=== PATIENT | female | born 1960 | race Caucasian/White ===

== ENCOUNTER → 2017-02-18 | Outpatient (REF) | payer BC ==
[2017-02-18 15:51] LABS: ALBUMIN 3.7 GM/DL (3.2-5.2); ALBUMIN/GLOBULIN RATIO 1.28 (1.00-1.93); ALKALINE PHOSPHATASE 70 U/L (45-117); ALT/SGPT 29 U/L (12-78); ANION GAP 6 MEQ/L (8-16); AST/SGOT 14 U/L (15-37); BILIRUBIN,TOTAL 0.9 MG/DL (0.2-1.0); BLOOD UREA NITROGEN 8 MG/DL (7-18); CALCIUM LEVEL 8.5 MG/DL (8.5-10.1); CARBON DIOXIDE LEVEL 27 MEQ/L (21-32); CHLORIDE LEVEL 104 MEQ/L (98-107); CHOLESTEROL LEVEL 170 MG/DL (<200); GLOMERULAR FILTRATION RATE > 60.0 (>51); GLUCOSE, FASTING 92 MG/DL (70-105); POTASSIUM SERUM 3.9 MEQ/L (3.5-5.1); SODIUM LEVEL 137 MEQ/L (136-145); TOTAL PROTEIN 6.6 GM/DL (6.4-8.2); TRIGLYCERIDES LEVEL 238 MG/DL (<150)
== END ==
LOC: M SFHCLACO 09:05
PROVIDERS: ATTEND Physician Assistant
DX: I10 Essential (primary) hypertension (principal); E78.2 Mixed hyperlipidemia; Z68.36 Body mass index [BMI] 36.0-36.9, adult

== ENCOUNTER → 2017-05-29 | Outpatient (CLI) | payer BC ==
--- NOTE | 2017-05-29 16:05 | REP ---
MRI brain and posterior fossa without and with IV gadolinium: History: Pain in the right ear. History of bilateral ear pain. Headaches. No comparison brain imaging. Technique: Axial and sagittal imaging planes are utilized for T1 and T2-weighted scans. Sequences include spin-echo, fast spin echo, FLAIR, and diffusion weighted sequences. Gadolinium enhancement dose is 21 ml of intravenous ProHance. Post gadolinium enhanced axial and coronal T1-weighted images are acquired with thin sections through the posterior fossa. MRI findings: No bony calvarial lesion is seen. Craniocervical junction is unremarkable. No intraorbital abnormality is seen. Diffusion weighted scans show no evidence to suggest acute ischemia. Thin section T2-weighted scans show normal seventh and eighth nerves in symmetric internal auditory canals. Cochlear and vestibular apparatus appear intact. Postcontrast images show no abnormal intercanalicular or extra canalicular enhancement. No CP angle cistern mass lesion is seen. There is no evidence of hydrocephalous. No abnormal white matter lesion is seen. No infarct, intracranial mass or abnormal contrast enhancement is appreciated. Impression: Unremarkable MRI study of the brain and posterior fossa without and with IV contrast. Signed by Kj Louise MD 05/29/2017 06:02 P
== END ==
LOC: M RAD 12:46
PROVIDERS: ATTEND Physician Assistant
DX: H60.391 Other infective otitis externa, right ear (principal); H92.01 Otalgia, right ear
CPT/HCPCS: 70553; A9576

== ENCOUNTER → 2017-06-27 | Outpatient (REF) | payer BC | LOC: M SFHCPLAZ 16:06 | PROVIDERS: ATTEND Family Medicine | DX: M25.541 Pain in joints of right hand (principal) ==

== ENCOUNTER → 2019-01-09 | Outpatient (CLI) | payer BC ==
[2019-01-09 17:19] LABS: ALBUMIN 4.1 GM/DL (3.2-5.2); ALT/SGPT 30 U/L (12-78); BILIRUBIN,TOTAL 0.7 MG/DL (0.2-1.0); BLOOD UREA NITROGEN 11 MG/DL (7-18); CARBON DIOXIDE LEVEL 27 MEQ/L (21-32); CHLORIDE LEVEL 107 MEQ/L (98-107); CHOLESTEROL LEVEL 214 MG/DL (<200); CHOLESTEROL RISK RATIO 5.219 (<5); CREATININE FOR GFR 0.78 MG/DL (0.55-1.30); GLOMERULAR FILTRATION RATE > 60.0 (>51); GLUCOSE, FASTING 97 MG/DL (70-100); HDL CHOLESTEROL 41 MG/DL (>40); LDL CHOLESTEROL 112 MG/DL (<100); NON-HDL-C 173 MG/DL; POTASSIUM SERUM 4.2 MEQ/L (3.5-5.1); SODIUM LEVEL 140 MEQ/L (136-145); TOTAL PROTEIN 7.3 GM/DL (6.4-8.2); TRIGLYCERIDES LEVEL 307 MG/DL (<150)
[2019-01-09 17:49] LABS: CREATININE, URINE 93.7 MG/DL; MALB URINE SIEMENS 5.3 MG/L; MAU/CREAT RATIO 5.6 MCG/MG (0.0-30.0)
== END ==
LOC: M ADAMS 08:59
PROVIDERS: ATTEND Nurse Practitioner Family
DX: I10 Essential (primary) hypertension (principal); E78.2 Mixed hyperlipidemia

== ENCOUNTER → 2019-02-09 | Outpatient (REF) | payer BC | LOC: M SFHCPLAZ 10:06 → M SFHCADAM 10:12 | PROVIDERS: ATTEND Nurse Practitioner Family | DX: E78.2 Mixed hyperlipidemia (principal) ==

== ENCOUNTER → 2019-02-09 | Outpatient (CLI) | payer BC ==
--- NOTE | 2019-02-10 02:31 | REP ---
Clinical: Arthralgia. Technique: AP, lateral, bilateral oblique views of the right hand. 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 Mild osteoarthritic degenerative changes noted throughout the remainder of the interphalangeal joints as well as the first carpometacarpal and metacarpophalangeal joint. Increase sclerosis along the radial surface and distal carpal row with joint space narrowing at the radiocarpal and carpometacarpal joints also identified. No significant periarticular erosive changes or calcified loose bodies are identified. Impression: Arthritic changes as detailed above. Electronically Signed by Lenny Lindo MD 02/10/2019 02:23 A
== END ==
LOC: M ADAMS 10:08
PROVIDERS: ATTEND Nurse Practitioner Family
DX: M19.041 Primary osteoarthritis, right hand (principal)

== ENCOUNTER → 2019-07-26 | Outpatient (REF) | payer BC ==
[2019-07-26 12:51] LABS: ALBUMIN 4.1 GM/DL (3.2-5.2); ALT/SGPT 39 U/L (12-78); BILIRUBIN,TOTAL 0.8 MG/DL (0.2-1.0); BLOOD UREA NITROGEN 11 MG/DL (7-18); CALCIUM LEVEL 9.4 MG/DL (8.5-10.1); CARBON DIOXIDE LEVEL 30 MEQ/L (21-32); CHLORIDE LEVEL 104 MEQ/L (98-107); CHOLESTEROL LEVEL 226 MG/DL (<200); CHOLESTEROL RISK RATIO 4.808 (<5); CREATININE FOR GFR 0.74 MG/DL (0.55-1.30); FREE T4 0.76 NG/DL (0.76-1.46); GLOMERULAR FILTRATION RATE > 60.0 (>51); GLUCOSE, FASTING 104 MG/DL (70-100); HDL CHOLESTEROL 47 MG/DL (>40); LDL CHOLESTEROL 108 MG/DL (<100); NON-HDL-C 179 MG/DL; POTASSIUM SERUM 4.1 MEQ/L (3.5-5.1); SODIUM LEVEL 139 MEQ/L (136-145); TOTAL PROTEIN 7.6 GM/DL (6.4-8.2); TRIGLYCERIDES LEVEL 356 MG/DL (<150)
[2019-07-26 12:53] LABS: TOTAL 25(OH) VITAMIN D 24.3 NG/ML (30.0-100.0)
== END ==
LOC: M SFHCADAM 08:48
PROVIDERS: ATTEND Nurse Practitioner Family
DX: I10 Essential (primary) hypertension (principal); E66.9 Obesity, unspecified; E78.2 Mixed hyperlipidemia

== ENCOUNTER → 2021-01-17 | Outpatient (REF) | payer BC ==
[2021-01-17 13:37] LABS: ALBUMIN 3.9 GM/DL (3.2-5.2); ALT/SGPT 43 U/L (12-78); BLOOD UREA NITROGEN 9 MG/DL (7-18); CALCIUM LEVEL 9.6 MG/DL (8.8-10.2); CARBON DIOXIDE LEVEL 25 MEQ/L (21-32); CHLORIDE LEVEL 106 MEQ/L (98-107); CHOLESTEROL LEVEL 199 MG/DL (<200); CHOLESTEROL RISK RATIO 4.627 (<5); CREATININE FOR GFR 0.68 MG/DL (0.55-1.30); GLOMERULAR FILTRATION RATE > 60.0 (>45); GLUCOSE, FASTING 97 MG/DL (70-100); HDL CHOLESTEROL 43 MG/DL (>40); LDL CHOLESTEROL 78 MG/DL (<100); NON-HDL-C 156 MG/DL; POTASSIUM SERUM 4.2 MEQ/L (3.5-5.1); SODIUM LEVEL 139 MEQ/L (136-145); TOTAL PROTEIN 7.1 GM/DL (6.4-8.2); TRIGLYCERIDES LEVEL 391 MG/DL (<150)
[2021-01-17 13:57] LABS: MALB URINE SIEMENS 7.3 MG/L; MAU/CREAT RATIO 5.4 MCG/MG (0.0-30.0)
== END ==
LOC: M SFHCADAM 08:08
PROVIDERS: ATTEND Nurse Practitioner Family
DX: E78.2 Mixed hyperlipidemia (principal); I10 Essential (primary) hypertension

== ENCOUNTER → 2021-05-29 | Outpatient (REF) | payer BC ==
[2021-05-29 13:08] LABS: BLOOD UREA NITROGEN 10 MG/DL (7-18); CALCIUM LEVEL 9.3 MG/DL (8.8-10.2); CARBON DIOXIDE LEVEL 27 MEQ/L (21-32); CHLORIDE LEVEL 106 MEQ/L (98-107); CREATININE FOR GFR 0.68 MG/DL (0.55-1.30); FREE T4 0.81 NG/DL (0.76-1.46); GLOMERULAR FILTRATION RATE > 60.0 (>45); GLUCOSE, FASTING 100 MG/DL (70-100); POTASSIUM SERUM 4.4 MEQ/L (3.5-5.1); SODIUM LEVEL 140 MEQ/L (136-145)
== END ==
LOC: M SFHCADAM 08:41
PROVIDERS: ATTEND Nurse Practitioner Family
DX: I10 Essential (primary) hypertension (principal)

== ENCOUNTER → 2022-01-14 | Outpatient (REF) | payer BC ==
[2022-01-14 14:26] LABS: BASO % 0.3 % (0.0-1.0); EOS # 0.1 10^3/uL (0.0-0.5); EOS % 2.1 % (0.0-3.0); HEMATOCRIT 42.1 % (36.0-47.0); HEMOGLOBIN 13.5 g/dl (12.0-15.5); LYMPH % 34.9 % (24.0-44.0); MEAN CORPUSCULAR HEMOGLOBIN 31.4 pg (27.0-33.0); MEAN CORPUSCULAR HGB CONC 32.1 g/dl (32.0-36.5); MEAN CORPUSCULAR VOLUME 97.9 fl (80.0-96.0); MONO # 0.5 10^3/uL (0.0-0.8); MONO % 8.6 % (2.0-8.0); NEUTROPHILS # 3.1 10^3/uL (1.5-8.5); NEUTROPHILS % 53.8 % (36.0-66.0); PLATELET COUNT, AUTOMATED 216 10^3/uL (150-450); WHITE BLOOD COUNT 5.7 10^3/uL (4.0-10.0)
[2022-01-14 15:03] LABS: ALBUMIN 3.9 GM/DL (3.2-5.2); ALT/SGPT 39 U/L (12-78); BLOOD UREA NITROGEN 11 MG/DL (7-18); CALCIUM LEVEL 9.1 MG/DL (8.8-10.2); CARBON DIOXIDE LEVEL 29 MEQ/L (21-32); CHLORIDE LEVEL 106 MEQ/L (98-107); CHOLESTEROL LEVEL 193 MG/DL (<200); CHOLESTEROL RISK RATIO 4.488 (<5); GLOMERULAR FILTRATION RATE > 60.0 (>45); GLUCOSE, FASTING 102 MG/DL (70-100); HDL CHOLESTEROL 43 MG/DL (>40); NON-HDL-C 150 MG/DL; POTASSIUM SERUM 4.2 MEQ/L (3.5-5.1); SODIUM LEVEL 139 MEQ/L (136-145); TOTAL PROTEIN 7.2 GM/DL (6.4-8.2); TRIGLYCERIDES LEVEL 439 MG/DL (<150)
[2022-01-14 15:06] LABS: MALB URINE SIEMENS 11.4 MG/L; MAU/CREAT RATIO 6.1 MCG/MG (0.0-30.0)
[2022-01-14 16:32] LABS: HEMOGLOBIN A1c 5.2 %
== END ==
LOC: M SFHCADAM 08:24
PROVIDERS: ATTEND Physician Assistant
DX: I10 Essential (primary) hypertension (principal); E78.2 Mixed hyperlipidemia; Z13.1 Encounter for screening for diabetes mellitus

== ENCOUNTER → 2022-06-12 | Outpatient (REF) | payer BC ==
[2022-06-12 14:29] LABS: CHOLESTEROL RISK RATIO 4.25 (<5)
== END ==
LOC: M SFHCADAM 13:10
PROVIDERS: ATTEND Physician Assistant
DX: E78.2 Mixed hyperlipidemia (principal)

== ENCOUNTER → 2022-06-12 | Outpatient (REF) | payer BC ==
[2022-06-12 13:45] LABS: BASO % 0.3 % (0.0-1.0); EOS # 0.2 10^3/uL (0.0-0.5); EOS % 2.3 % (0.0-3.0); HEMOGLOBIN 13.5 g/dl (12.0-15.5); LYMPH # 2.2 10^3/uL (1.5-5.0); LYMPH % 33.5 % (24.0-44.0); MEAN CORPUSCULAR HEMOGLOBIN 31.7 pg (27.0-33.0); MEAN CORPUSCULAR HGB CONC 32.1 g/dl (32.0-36.5); MEAN CORPUSCULAR VOLUME 98.6 fl (80.0-96.0); MONO # 0.6 10^3/uL (0.0-0.8); MONO % 8.7 % (2.0-8.0); NEUTROPHILS # 3.6 10^3/uL (1.5-8.5); NEUTROPHILS % 54.9 % (36.0-66.0); PLATELET COUNT, AUTOMATED 225 10^3/uL (150-450); RED BLOOD COUNT 4.26 10^6/uL (4.00-5.40); WHITE BLOOD COUNT 6.5 10^3/uL (4.0-10.0)
[2022-06-12 14:42] LABS: ALBUMIN 3.7 GM/DL (3.2-5.2); ALT/SGPT 37 U/L (12-78); BILIRUBIN,TOTAL 0.7 MG/DL (0.2-1.0); BLOOD UREA NITROGEN 15 MG/DL (7-18); CALCIUM LEVEL 9.2 MG/DL (8.8-10.2); CARBON DIOXIDE LEVEL 26 MEQ/L (21-32); CHLORIDE LEVEL 108 MEQ/L (98-107); CREATININE FOR GFR 0.65 MG/DL (0.55-1.30); GLOMERULAR FILTRATION RATE > 60.0 (>45); GLUCOSE, FASTING 99 MG/DL (70-100); POTASSIUM SERUM 4.2 MEQ/L (3.5-5.1); SODIUM LEVEL 140 MEQ/L (136-145); TOTAL PROTEIN 7.1 GM/DL (6.4-8.2)
== END ==
LOC: M LABDRWAD 13:09
PROVIDERS: ATTEND Physician Assistant
DX: Z79.899 Other long term (current) drug therapy (principal)

== ENCOUNTER → 2023-01-15 | Outpatient (REF) | payer BC ==
[2023-01-15 14:37] LABS: BLOOD UREA NITROGEN 13 MG/DL (9-23); CALCIUM LEVEL 8.8 MG/DL (8.3-10.6); CARBON DIOXIDE LEVEL 25 MMOL/L (20-31); CHLORIDE LEVEL 106 MMOL/L (98-107); CHOLESTEROL LEVEL 186 MG/DL (<200); CHOLESTEROL RISK RATIO 4.35 (<5); CREATININE FOR GFR 0.64 MG/DL (0.55-1.30); GLOMERULAR FILTRATION RATE > 60.0 (>45); GLUCOSE, FASTING 100 MG/DL (74-106); HDL CHOLESTEROL 42.7 MG/DL (>40); LDL CHOLESTEROL 78.9 MG/DL (<100); NON-HDL-C 143.3 MG/DL; POTASSIUM SERUM 4.6 MMOL/L (3.5-5.1); SODIUM LEVEL 141 MMOL/L (136-145); TRIGLYCERIDES LEVEL 322 MG/DL (<150)
== END ==
LOC: M SFHCADAM 07:57
PROVIDERS: ATTEND Physician Assistant
DX: E78.1 Pure hyperglyceridemia (principal); I10 Essential (primary) hypertension

== ENCOUNTER → 2023-03-19 | Outpatient (REF) | payer BC ==
[2023-03-19 13:10] LABS: BLOOD UREA NITROGEN 11 MG/DL (9-23); CALCIUM LEVEL 8.8 MG/DL (8.3-10.6); CARBON DIOXIDE LEVEL 29 MMOL/L (20-31); CHLORIDE LEVEL 107 MMOL/L (98-107); CREATININE FOR GFR 0.59 MG/DL (0.55-1.30); GLOMERULAR FILTRATION RATE > 60.0 (>45); GLUCOSE, FASTING 92 MG/DL (74-106); POTASSIUM SERUM 4.3 MMOL/L (3.5-5.1); SODIUM LEVEL 142 MMOL/L (136-145)
[2023-03-19 13:13] LABS: FREE T4 0.88 NG/DL (0.89-1.76); THYROID STIMULATING HORMONE 2.249 uIU/ML (0.55-4.78)
== END ==
LOC: M SFHCADAM 09:04
PROVIDERS: ATTEND Physician Assistant
DX: I10 Essential (primary) hypertension (principal)

== ENCOUNTER → 2023-04-18 | Outpatient (REF) | payer BC | LOC: M LAB REF 12:19 | PROVIDERS: ATTEND Physician Assistant | DX: J06.9 Acute upper respiratory infection, unspecified (principal) ==

== ENCOUNTER → 2023-06-23 | Outpatient (REF) | payer BC ==
[2023-06-23 15:36] LABS: THYROID STIMULATING HORMONE 2.245 uIU/ML (0.55-4.78)
[2023-06-23 15:37] LABS: FREE T4 0.95 NG/DL (0.89-1.76)
== END ==
LOC: M SFHCADAM 08:44
PROVIDERS: ATTEND Physician Assistant Medical
DX: R94.6 Abnormal results of thyroid function studies (principal)

== ENCOUNTER → 2023-06-23 | Outpatient (REF) | payer BC ==
[2023-06-23 15:55] LABS: ALBUMIN 3.9 G/DL (3.2-5.2); ALKALINE PHOSPHATASE 69 U/L (46-116); ALT/SGPT 32 U/L (7.0-40); AST/SGOT 18 U/L (<34); BLOOD UREA NITROGEN 14 MG/DL (9-23); CARBON DIOXIDE LEVEL 30 MMOL/L (20-31); CHLORIDE LEVEL 105 MMOL/L (98-107); CREATININE FOR GFR 0.62 MG/DL (0.55-1.30); GLOMERULAR FILTRATION RATE > 60.0 (>45); GLUCOSE, FASTING 96 MG/DL (74-106); POTASSIUM SERUM 4.2 MMOL/L (3.5-5.1); SODIUM LEVEL 142 MMOL/L (136-145)
[2023-06-23 16:06] LABS: BASO % 0.3 % (0.0-1.0); EOS # 0.1 10^3/uL (0.0-0.5); EOS % 2.1 % (0.0-3.0); HEMATOCRIT 41.4 % (36.0-47.0); HEMOGLOBIN 13.6 g/dl (12.0-15.5); LYMPH # 2.2 10^3/uL (1.5-5.0); LYMPH % 32.7 % (24.0-44.0); MEAN CORPUSCULAR HGB CONC 32.9 g/dl (32.0-36.5); MEAN CORPUSCULAR VOLUME 97.4 fl (80.0-96.0); MONO # 0.5 10^3/uL (0.0-0.8); MONO % 6.8 % (2.0-8.0); PLATELET COUNT, AUTOMATED 234 10^3/uL (150-450); RED BLOOD COUNT 4.25 10^6/uL (4.00-5.40); WHITE BLOOD COUNT 6.8 10^3/uL (4.0-10.0)
== END ==
LOC: M LABDRAWP 12:59
PROVIDERS: ATTEND Physician Assistant
DX: R94.6 Abnormal results of thyroid function studies (principal); Z79.899 Other long term (current) drug therapy

== ENCOUNTER → 2023-07-11 | Outpatient (CLI) | payer BC | LOC: M WHC 08:55 | PROVIDERS: ATTEND Physician Assistant | DX: I10 Essential (primary) hypertension (principal) ==

== ENCOUNTER → 2024-01-28 | Outpatient (REF) | payer BC ==
[2024-01-28 14:43] LABS: BASO % 0.3 % (0.0-1.0); EOS # 0.1 10^3/uL (0.0-0.5); HEMATOCRIT 42.3 % (36.0-47.0); HEMOGLOBIN 13.9 g/dl (12.0-15.5); LYMPH # 2.5 10^3/uL (1.5-5.0); LYMPH % 35.8 % (24.0-44.0); MEAN CORPUSCULAR HGB CONC 32.9 g/dl (32.0-36.5); MEAN CORPUSCULAR VOLUME 97.2 fl (80.0-96.0); MONO # 0.5 10^3/uL (0.0-0.8); MONO % 6.8 % (2.0-8.0); NEUTROPHILS # 3.8 10^3/uL (1.5-8.5); NEUTROPHILS % 54.8 % (36.0-66.0); PLATELET COUNT, AUTOMATED 255 10^3/uL (150-450); RED BLOOD COUNT 4.35 10^6/uL (4.00-5.40); WHITE BLOOD COUNT 6.9 10^3/uL (4.0-10.0)
[2024-01-28 15:11] LABS: ERYTHROCYTE SEDIMENTATION RATE 15 mm/hr (0-30)
[2024-01-28 16:55] LABS: URIC ACID 6.8 MG/DL (3.1-7.8)
[2024-01-28 16:57] LABS: C REACTIVE PROTEIN QUANTITATIV < 0.40 MG/DL (<1.0)
[2024-01-28 16:59] LABS: ALBUMIN 3.8 G/DL (3.2-5.2); ALKALINE PHOSPHATASE 84 U/L (46-116); ALT/SGPT 35 U/L (7.0-40); AST/SGOT 16 U/L (<34); BILIRUBIN,TOTAL 0.9 MG/DL (0.3-1.2); BLOOD UREA NITROGEN 12 MG/DL (9-23); CALCIUM LEVEL 9.2 MG/DL (8.3-10.6); CARBON DIOXIDE LEVEL 27 MMOL/L (20-31); CHLORIDE LEVEL 107 MMOL/L (98-107); CHOLESTEROL LEVEL 162 MG/DL (<200); CHOLESTEROL RISK RATIO 3.82 (<5); CREATININE FOR GFR 0.66 MG/DL (0.55-1.30); GLOMERULAR FILTRATION RATE > 60.0 (>45); GLUCOSE, FASTING 107 MG/DL (74-106); HDL CHOLESTEROL 42.4 MG/DL (>40); NON-HDL-C 119.6 MG/DL; POTASSIUM SERUM 3.9 MMOL/L (3.5-5.1); SODIUM LEVEL 141 MMOL/L (136-145); TOTAL PROTEIN 6.8 G/DL (5.7-8.2); TRIGLYCERIDES LEVEL 318 MG/DL (<150)
[2024-01-28 17:00] LABS: FREE T4 0.95 NG/DL (0.89-1.76)
[2024-01-28 17:01] LABS: THYROID STIMULATING HORMONE 1.564 uIU/ML (0.55-4.78)
[2024-01-28 17:42] LABS: HEMOGLOBIN A1c 5.1 % (4.0-6.0)
[2024-01-29 23:08] LABS: ANA (HEP2) Negative (.); CYCLIC CITRULLINATED PEPTIDE 4 units (0-19)
== END ==
LOC: M SFHCADAM 08:19
PROVIDERS: ATTEND Physician Assistant
DX: B37.2 Candidiasis of skin and nail (principal); I10 Essential (primary) hypertension; E78.2 Mixed hyperlipidemia; M19.041 Primary osteoarthritis, right hand; M19.042 Primary osteoarthritis, left hand; L40.9 Psoriasis, unspecified; M25.50 Pain in unspecified joint

== ENCOUNTER → 2024-03-18 | Outpatient (CLI) | payer BC | LOC: M SOG 07:49 | PROVIDERS: ATTEND Physician Assistant | DX: M79.641 Pain in right hand (principal); M79.642 Pain in left hand ==

== ENCOUNTER → 2024-05-07 | Outpatient (CLI) | payer BC ==
[~2024-05-07] MED LIST: AMLO1TAB24 PO; ATOR80TA59 PO; CALC-190 PO; CLAR10CA3 PO; CLOB0.057 TOP; CLOT1CRE56 TOP; COLL1CAP PO; DSS100CA PO; DUPI300P SC; FLUTISP; HYDR-3490 PO; K 10100T PO; KP F1200 PO; LOSA100T46 PO; METO1TAB33 PO; NYST1POW9 TOP; PERC5TAB12 PO; RUXO60CR TP; TACR0.1O TOP; ULTR5TAB PO; VITA200032 PO; ZYRT10TA12 PO
== END ==
LOC: M EKG 11:41
PROVIDERS: ATTEND Anesthesiology
DX: Z01.818 Encounter for other preprocedural examination (principal)

== ENCOUNTER 2024-05-14 06:23 | Day surgery (SDC) | payer BC ==
[~2024-05-14] VITALS: Ht 180.3 cm; Wt 108.5 kg
[~2024-05-14 06:23] MED LIST changes: -PERC5TAB12 PO
[2024-05-14] MEDS ORDERED: LR 1,000 ML IV SCH (06:40)
[2024-05-14] MEDS ORDERED: fentaNYL 100 MCG/2 ML INJECTION As Ordered ONE (06:53)
[2024-05-14] MEDS ORDERED: ACETAMINOPHEN 1000MG 100ML IV BAG As Ordered ONE (06:53)
[2024-05-14] MEDS ORDERED: LIDOCAINE 2% 100MG/5ML SDV (FOR ANES.) As Ordered ONE (06:53)
[2024-05-14] MEDS ORDERED: propofoL 200 MG/20 ML VIAL As Ordered ONE (06:53)
[2024-05-14] MEDS ORDERED: ROPIvacaine 0.5% 30ML VIAL PN ONE (07:55)
[2024-05-14] MEDS ORDERED: dexAMETHasone 10MG/1ML VIAL PRES.FREE PN ONE (07:55)
[2024-05-14] MEDS ORDERED: LIDOCAINE 1% SDV 5ML VIAL PN ONE (07:55)
[2024-05-14] MEDS: fentaNYL 100 MCG/2 ML INJECTION IV PRN (08:08)
[2024-05-14] MEDS: MIDAZOLAM INJ 2MG/2ML VIAL IV PRN (08:09)
[2024-05-14] MEDS ORDERED: BACITRACIN OINTMENT 30GM TUBE As Ordered ONE (08:38)
[2024-05-14] MEDS: ceFAZolin 2 GM/D5W 50 ML IV BAG As Ordered ONE (09:07)
[2024-05-14] MEDS ORDERED: ONDANSETRON 4MG 2ML VIAL As Ordered ONE (09:22)
[2024-05-14] MEDS ORDERED: KETOROLAC 60MG 2ML VIAL As Ordered ONE (09:22)
[2024-05-14] MEDS ORDERED: PERC5TAB12 PO (10:53)
[2024-05-14 11:59] VITALS: BP 152/80; TEMP 97.4; O2SAT 100
== END 2024-05-14 12:08 | disposition home or self-care (01) ==
LOC: M SDC 06:23
PROVIDERS: ATTEND Orthopaedic Surgery Hand Surgery
DX: M18.12 Unilateral primary osteoarthritis of first carpometacarpal joint, left hand (principal); G47.9 Sleep disorder, unspecified; Z88.5 Allergy status to narcotic agent; Z79.899 Other long term (current) drug therapy
CPT/HCPCS: 25447; 64415; 76000; C1713; J0131; J0665; J0690; J1100; J1885; J2250; J2405; J3010

== ENCOUNTER → 2024-05-28 | Outpatient (CLI) | payer BC ==
[~2024-05-28] MED LIST changes: +PERC5TAB12 PO
== END ==
LOC: M SOG 07:18
PROVIDERS: ATTEND Physician Assistant
DX: M18.12 Unilateral primary osteoarthritis of first carpometacarpal joint, left hand (principal); M79.645 Pain in left finger(s)

== ENCOUNTER 2024-06-28 05:57 | Day surgery (SDC) | payer BC ==
[~2024-06-28] VITALS: Ht 180.3 cm; Wt 108.5 kg
[~2024-06-28 05:57] MED LIST changes: +TRIA1CR80
[2024-06-28] MEDS: LR 1,000 ML IV SCH (07:00)
[2024-06-28] MEDS ORDERED: MIDAZOLAM INJ 2MG/2ML VIAL As Ordered ONE (07:05)
[2024-06-28] MEDS ORDERED: ONDANSETRON 4MG 2ML VIAL As Ordered ONE (07:05)
[2024-06-28] MEDS ORDERED: LIDOCAINE 2% 100MG/5ML SDV (FOR ANES.) As Ordered ONE (07:05)
[2024-06-28] MEDS ORDERED: propofoL 200 MG/20 ML VIAL As Ordered ONE (07:05)
[2024-06-28] MEDS ORDERED: fentaNYL 250 MCG/5 ML INJECTION As Ordered ONE (07:05)
[2024-06-28] MEDS ORDERED: KETOROLAC 60MG 2ML VIAL As Ordered ONE (07:05)
[2024-06-28] MEDS ORDERED: ACETAMINOPHEN 1000MG 100ML IV BAG As Ordered ONE (07:05)
[2024-06-28] MEDS ORDERED: ceFAZolin SOD 2 GM in IV 1 EA IV ONE (08:00)
[2024-06-28] MEDS: ceFAZolin 2 GM/D5W 50 ML IV BAG As Ordered ONE (08:14)
[2024-06-28] MEDS ORDERED: ePHEDrine SULFATE 25 MG/5 ML(5MG/ML) SYRINGE As Ordered ONE (08:15)
[2024-06-28] MEDS: BACITRACIN OINTMENT 30GM TUBE As Ordered ONE (09:17)
[2024-06-28] MEDS ORDERED: fentaNYL 100 MCG/2 ML INJECTION IV PRN ×2 (09:20→09:35)
[2024-06-28] MEDS ORDERED: MORPHINE 2 MG/ML 1ML VIAL IV PRN (09:20)
[2024-06-28] MEDS ORDERED: oxyCODONE 5MG TAB PO PRN (09:20)
[2024-06-28] MEDS ORDERED: ONDANSETRON 4MG 2ML VIAL IV PRN ×2 (09:20→09:35)
[2024-06-28] MEDS ORDERED: HYDROMORPHONE HCL 0.5 MG/ 0.5 ML SYRINGE IV PRN (09:35)
[2024-06-28] MEDS ORDERED: LR 1,000 ML IV SCH (09:35)
[2024-06-28] MEDS: MORPHINE 2 MG/ML 1ML VIAL IV PRN (09:38)
[2024-06-28] MEDS: oxyCODONE 5MG TAB PO PRN (09:51)
[2024-06-28 10:25] VITALS: BP 148/82; TEMP 97.9; O2SAT 98
== END 2024-06-28 10:37 | disposition home or self-care (01) ==
LOC: M SDC 05:57
PROVIDERS: ATTEND Orthopaedic Surgery Hand Surgery
DX: M19.041 Primary osteoarthritis, right hand (principal); Z88.5 Allergy status to narcotic agent; Z79.899 Other long term (current) drug therapy
CPT/HCPCS: 26860; 76000; C1713; J0131; J0665; J0690; J1100; J1885; J2250; J2405; J3010

== ENCOUNTER → 2024-07-13 | Outpatient (CLI) | payer BC | LOC: M SOG 13:46 | PROVIDERS: ATTEND Physician Assistant | DX: M79.645 Pain in left finger(s) (principal); M19.041 Primary osteoarthritis, right hand ==

== ENCOUNTER → 2024-07-27 | Outpatient (CLI) | payer BC ==
[~2024-07-27] MED LIST changes: +NYST1POW3 TOP; -NYST1POW9 TOP
== END ==
LOC: M SOG 07:48
PROVIDERS: ATTEND Physician Assistant
DX: M19.041 Primary osteoarthritis, right hand (principal)

== ENCOUNTER → 2024-09-02 | Outpatient (CLI) | payer BC | LOC: M SOG 07:58 | PROVIDERS: ATTEND Physician Assistant | DX: M18.0 Bilateral primary osteoarthritis of first carpometacarpal joints (principal) ==

== ENCOUNTER → 2025-01-19 | Outpatient (CLI) | payer BC | LOC: M ADAMS 08:30 | PROVIDERS: ATTEND Physician Assistant | DX: M54.2 Cervicalgia (principal) ==

== ENCOUNTER → 2025-01-19 | Outpatient (REF) | payer BC ==
[2025-01-19 13:49] LABS: HEMATOCRIT 39.8 % (36.0-47.0); MEAN CORPUSCULAR HEMOGLOBIN 31.4 pg (27.0-33.0); MEAN CORPUSCULAR HGB CONC 32.7 g/dl (32.0-36.5); MEAN CORPUSCULAR VOLUME 96.1 fl (80.0-96.0); PLATELET COUNT, AUTOMATED 269 10^3/uL (150-450); RED BLOOD COUNT 4.14 10^6/uL (4.00-5.40)
[2025-01-19 14:17] LABS: ALBUMIN 3.8 G/DL (3.2-5.2); ALKALINE PHOSPHATASE 79 U/L (35-104); ALT/SGPT 33 U/L (7.0-40); AST/SGOT 20 U/L (<34); BILIRUBIN,TOTAL 0.7 MG/DL (0.3-1.2); BLOOD UREA NITROGEN 12 MG/DL (9-23); CALCIUM LEVEL 9.3 MG/DL (8.3-10.6); CARBON DIOXIDE LEVEL 30 MMOL/L (20-31); CHLORIDE LEVEL 102 MMOL/L (98-107); CHOLESTEROL LEVEL 160 MG/DL (<200); CHOLESTEROL RISK RATIO 4.02 (<5); CREATININE FOR GFR 0.58 MG/DL (0.55-1.30); GLOMERULAR FILTRATION RATE > 90.0 (>45); GLUCOSE, FASTING 103 MG/DL (74-106); HDL CHOLESTEROL 39.8 MG/DL (>40); LDL CHOLESTEROL 86.4 MG/DL (<100); NON-HDL-C 120.2 MG/DL; POTASSIUM SERUM 3.8 MMOL/L (3.5-5.1); SODIUM LEVEL 140 MMOL/L (136-145); TOTAL PROTEIN 7.2 G/DL (5.7-8.2); TRIGLYCERIDES LEVEL 169 MG/DL (<150)
[2025-01-19 14:18] LABS: THYROID STIMULATING HORMONE 1.606 uIU/ML (0.55-4.78)
[2025-01-19 14:19] LABS: FREE T4 1.04 NG/DL (0.89-1.76)
[2025-01-19 14:26] LABS: ATYPICAL LYMPH 6 % (0-5); BASOPHILS 1 % (0-1); EOSINOPHILS 1 % (0-3); LYMPHOCYTES 40 % (16-44); MONOCYTES 4 % (0-5); NEUTROPHILS 48 % (28-66); PLATELET ESTIMATE NORMAL (NORMAL)
== END ==
LOC: M SFHCADAM 08:29
PROVIDERS: ATTEND Physician Assistant
DX: B37.2 Candidiasis of skin and nail (principal); I10 Essential (primary) hypertension; E78.2 Mixed hyperlipidemia; J30.9 Allergic rhinitis, unspecified

== ENCOUNTER → 2025-01-20 | Outpatient (CLI) | payer BC | LOC: M PLAIMG 14:18 | PROVIDERS: ATTEND Physician Assistant | DX: M53.2X2 Spinal instabilities, cervical region (principal) ==

== ENCOUNTER → 2025-06-23 | Outpatient (CLI) | payer MEDICARE, BC ==
[~2025-06-23] MED LIST changes: +PROHANCE 279.3MG/ML 15ML VIAL ONE; +PROHANCE 279.3MG/ML 5ML VIAL ONE
== END ==
LOC: M PLAIMG 09:23
PROVIDERS: ATTEND Neurological Surgery
DX: D32.0 Benign neoplasm of cerebral meninges (principal)
CPT/HCPCS: 70553; 72141; A9576